=== PATIENT | male | born 1970 | race Caucasian/White ===

== ENCOUNTER 2017-02-04 12:27 | Observation (INO) | payer BC ==
[2017-02-04] MEDS ORDERED: NORMAL SALINE 1000 ML 1,000 ML IV ONE (12:40)
--- NOTE | 2017-02-04 12:43 | ER Document Report ---
ED Medical Screen (RME) - General TRAVEL OUTSIDE OF THE [place] IN LAST 30 DAYS: No <JEFFERY METZ - Last Filed: 02/04/17 12:42> <LITZY FAIRCHILD - Last Filed: 02/04/17 13:28> - General Chief Complaint: Vomiting Stated Complaint: ABDOMINAL PAIN Notes: 46-year-old male patient with history of constipation, at least will go several days without having a bowel movement. 2-3 days ago he began having mid lower abdominal pain feeling like he needed to have a BM. He took milk of magnesia and vomited it. The pain has been getting worse. Brief exam shows a soft abdomen positive bowel sounds percussion dull quite tender to palpate in the right lower quadrant and left lower quadrant. I have greeted and performed a rapid initial assessment of this patient. A comprehensive ED assessment and evaluation of the patient, analysis of test results and completion of the medical decision making process will be conducted by additional ED providers. (JEFFERY METZ) - Related Data Allergies/Adverse Reactions: No Known Allergies Allergy (Verified 02/04/17 12:30) Past Medical History Renal/ Medical History: Denies: Hx Peritoneal Dialysis <JEFFERY METZ - Last Filed: 02/04/17 12:42> Physical Exam <JEFFERY METZ - Last Filed: 02/04/17 12:42> <LITZY FAIRCHILD - Last Filed: 02/04/17 13:28> - Vital signs Vitals: Temp Pulse Resp BP Pulse Ox 97.5 F 63 18 140/77 H 100 02/04/17 12:31 02/04/17 12:31 02/04/17 12:31 02/04/17 12:31 02/04/17 12:31 - Notes Notes: I examined patient. He has mild generalized tenderness with severe tenderness in the right lower quadrant. He has guarding and rebound both. General surgery has been called (LITZY FAIRCHILD) Course <JEFFERY METZ - Last Filed: 02/04/17 12:42> - Laboratory Result Diagrams: 02/04/17 12:49 02/04/17 12:49 <LITZY FAIRCHILD - Last Filed: 02/04/17 13:28> - Re-evaluation Re-evalutation: I examined patient. He has mild generalized tenderness with severe tenderness in the right lower quadrant. He has guarding and rebound both. General surgery has been called and will see the patient 02/04/17 13:28 (LITZY FAIRCHILD) - Vital Signs Vital signs: Temp Pulse Resp BP Pulse Ox 97.5 F 63 18 140/77 H 100 02/04/17 12:31 02/04/17 12:31 02/04/17 12:31 02/04/17 12:31 02/04/17 12:31 - Laboratory Laboratory results interpreted by me: 02/04/17 12:49 WBC 12.0 H Seg Neutrophils % 84.6 H Lymphocytes % 9.5 L Absolute Neutrophils 10.2 H
[2017-02-04] MEDS ORDERED: ONDANSETRON HCL INJ/PF 4 MG/2 ML SDV IV ONE (13:08)
[2017-02-04 13:11] LABS: ABSOLUTE BASOPHILS # (AUTO) 0.1 10^3/uL (0.0-0.2); ABSOLUTE EOSINOPHILS # (AUTO) 0.1 10^3/uL (0.0-0.6); ABSOLUTE LYMPHOCYTES (AUTO) 1.1 10^3/uL (0.5-4.7); ABSOLUTE MONOCYTES (AUTO) 0.5 10^3/uL (0.1-1.4); ABSOLUTE NEUT (AUTO) 10.2 10^3/uL (1.7-8.2); BASOPHILS % (AUTO) 0.4 % (0-2); EOSINOPHILS % (AUTO) 1.1 % (0-6); HEMATOCRIT 49.2 % (37.9-51.0); HEMOGLOBIN 16.8 g/dL (13.5-17.0); HGB HCT DIFFERENCE 1.2; LYMPHOCYTES % (AUTO) 9.5 % (13-45); MEAN CORPUSCULAR HEMOGLOBIN 30.5 pg (27.0-33.4); MEAN CORPUSCULAR HGB CONC 34.2 g/dL (32.0-36.0); MEAN CORPUSCULAR VOLUME 89 fl (80-97); MONOCYTES % (AUTO) 4.4 % (3-13); RED BLOOD COUNT 5.52 10^6/uL (4.35-5.55); RED CELL DISTRIBUTION WIDTH 13.2 % (11.5-14.0); SEGMENTED NEUTROPHILS % (AUTO) 84.6 % (42-78)
--- NOTE | 2017-02-04 13:14 | ER Document Report ---
ED GI/ <LITZY FAIRCHILD - Last Filed: 02/04/17 13:29> - General Time seen by provider: 13:11 Mode of Arrival: Ambulatory Information source: Patient TRAVEL OUTSIDE OF THE [place] IN LAST 30 DAYS: No - HPI Patient complains to provider of: Abdominal pain, Vomiting Onset: Other - Couple days Timing/Duration: Gradual, Intermittent Quality of pain: Sharp Severity at maximum: Severe Severity in ED: Moderate Pain Level: 4 Location: Other - Generalized worse on the right lower quadrant Associated symptoms: Constipation, Nausea. denies: Fever Exacerbated by: Movement, Walking Relieved by: Denies Similar symptoms previously: Yes Recently seen / treated by doctor: No <IDANIA DIGGS - Last Filed: 02/04/17 18:40> - General Chief Complaint: Vomiting Stated Complaint: ABDOMINAL PAIN Notes: 46-year-old male presents to ED for generalized abdominal pain. He states he has a history of constipation but this is much worse pain than he has ever had with his constipation. States she's had no stool for at least 2 or 3 days. Pain is worse to the lower right quadrant on examination. (IDANIA DIGGS ) - Related Data Allergies/Adverse Reactions: No Known Allergies Allergy (Verified 02/04/17 12:30) Home Medications: Current Home Medications No Home Medications 02/04/17 [History] Past Medical History - General Information source: Patient - Social History Smoking Status: Former Smoker Cigarette use (# per day): No Chew tobacco use (# tins/day): No Smoking Education Provided: No Frequency of alcohol use: None Drug Abuse: None Family History: Reviewed & Not Pertinent Patient has suicidal ideation: No Patient has homicidal ideation: No - Past Medical History Cardiac Medical History: Reports: None Pulmonary Medical History: Reports: None EENT Medical History: Reports: None Neurological Medical History: Reports: None Endocrine Medical History: Reports: None Renal/ Medical History: Reports: None Malignancy Medical History: Reports None GI Medical History: Reports: None Musculoskeltal Medical History: Reports None Skin Medical History: Reports None Psychiatric Medical History: Reports: None Traumatic Medical History: Reports: None Infectious Medical History: Reports: None Past Surgical History: Reports: Hx Inguinal Hernia <IDANIA DIGGS - Last Filed: 02/04/17 18:40> Review of Systems - Review of Systems Constitutional: No symptoms reported EENT: No symptoms reported Cardiovascular: No symptoms reported Respiratory: No symptoms reported Gastrointestinal: Abdominal pain, Nausea, Vomiting Genitourinary: No symptoms reported Male Genitourinary: No symptoms reported Musculoskeletal: No symptoms reported Skin: No symptoms reported Hematologic/Lymphatic: No symptoms reported Neurological/Psychological: No symptoms reported -: Yes All other systems reviewed and negative <IDANIA DIGGS - Last Filed: 02/04/17 18:40> Physical Exam - Vital signs Interpretation: Normal - General General appearance: Appears well, Alert - HEENT Head: Normocephalic, Atraumatic Eyes: Normal Pupils: PERRL - Respiratory Respiratory status: No respiratory distress Chest status: Nontender Breath sounds: Normal Chest palpation: Normal - Cardiovascular Rhythm: Regular Heart sounds: Normal auscultation Murmur: No - Abdominal Inspection: Normal Distension: No distension Bowel sounds: Hypoactive Tenderness: Tender, McBurney's point, Guarding, Rebound Organomegaly: No organomegaly - Back Back: Normal, Nontender - Extremities General upper extremity: Normal inspection, Nontender, Normal color, Normal ROM , Normal temperature General lower extremity: Normal inspection, Nontender, Normal color, Normal ROM , Normal temperature, Normal weight bearing. No: Chinyere's sign - Neurological Neuro grossly intact: Yes Cognition: Normal Orientation: AAOx4 Zoë Coma Scale Eye Opening: Spontaneous [place] Coma Scale Verbal: Oriented [place] Coma Scale Motor: Obeys Commands [place] Coma Scale Total: 15 Speech: Normal Motor strength normal: LUE, RUE, LLE, RLE Sensory: Normal - Psychological Associated symptoms: Normal affect, Normal mood - Skin Skin Temperature: Warm Skin Moisture: Dry Skin Color: Normal <IDANIA DIGGS - Last Filed: 02/04/17 18:40> - Vital signs Vitals: Temp Pulse Resp BP Pulse Ox 97.5 F 63 18 140/77 H 100 02/04/17 12:31 02/04/17 12:31 02/04/17 12:31 02/04/17 12:31 02/04/17 12:31 Course - Laboratory Result Diagrams: 02/04/17 12:49 02/04/17 12:49 <LITZY FAIRCHILD - Last Filed: 02/04/17 13:29> - Laboratory Result Diagrams: 02/04/17 12:49 02/04/17 12:49 <IDANIA DIGGS - Last Filed: 02/04/17 18:40> - Re-evaluation Re-evalutation: 02/04/17 13:29 I examined patient. He has mild generalized tenderness with severe tenderness in the right lower quadrant. He has guarding and rebound both. General surgery has been called (LITZY FAIRCHILD) 02/04/17 13:[address] Grewal who came and examined the patient is stating he will take him to surgery for appendicitis. Patient will be admitted at this time and Unasyn 3 g ordered. Morphine and Zofran and IV fluids ordered. (IDANIA DIGGS) - Vital Signs Vital signs: Temp Pulse Resp BP Pulse Ox 97.6 F 90 18 122/73 97 02/04/17 18:00 02/04/17 18:00 02/04/17 18:00 02/04/17 18:00 02/04/17 18:00 - Laboratory Laboratory results interpreted by me: 02/04/17 02/04/17 02/04/17 12:49 12:49 12:49 WBC 12.0 H Seg Neutrophils % 84.6 H Lymphocytes % 9.5 L Absolute Neutrophils 10.2 H Glucose 133 H Albumin 5.1 H Urine Ketones TRACE H Urine Blood SMALL H Discharge <LITZY FAIRCHILD - Last Filed: 02/04/17 13:29> - Discharge Admitting Provider: Surgicalist - [facility] Unit Admitted: Surgical Floor <IDANIA DIGGS - Last Filed: 02/04/17 18:40> - Discharge Clinical Impression: Abdominal pain Qualifiers: Abdominal location: generalized Qualified Code(s): R10.84 - Generalized abdominal pain Appendicitis Qualifiers: Appendicitis type: acute appendicitis Acute appendicitis type: unspecified acute appendicitis type Qualified Code(s): K35.80 - Unspecified acute appendicitis
[2017-02-04] MEDS ORDERED: MORPHINE SULFATE 10 MG/ML INJ IV ONE (13:23)
[2017-02-04 13:27] LABS: ALANINE AMINOTRANSFERASE 21 U/L (21-72); ALBUMIN 5.1 g/dL (3.5-5.0); ALKALINE PHOSPHATASE 110 U/L (38-126); ANION GAP 19 (5-19); ASPARTATE AMINO TRANSFERASE 21 U/L (17-59); BILIRUBIN,DIRECT 0.1 mg/dL (0.0-0.4); BILIRUBIN,TOTAL 0.8 mg/dL (0.2-1.3); BLOOD UREA NITROGEN 15 mg/dL (7-20); CALCIUM 10.2 mg/dL (8.4-10.2); CARBON DIOXIDE 24 mmol/L (22-30); CHLORIDE 99 mmol/L (98-107); CREATININE RESULT 1.15 mg/dL (0.52-1.25); GLUCOSE 133 mg/dL (75-110); LIPASE 58.6 U/L (23-300); POTASSIUM 4.1 mmol/L (3.6-5.0); SODIUM 141.5 mmol/L (137-145); TOTAL PROTEIN 7.8 g/dL (6.3-8.2)
[2017-02-04 13:30] LABS: APPEARANCE,URINE CLEAR; BILIRUBIN,URINE NEGATIVE (NEGATIVE); GLUCOSE, URINE NEGATIVE (NEGATIVE); KETONES,URINE TRACE mg/dL (NEGATIVE); LEUKOCYTE ESTERASE,URINE NEGATIVE (NEGATIVE); NITRITE,URINE NEGATIVE (NEGATIVE); PROTEIN,URINE NEGATIVE (NEGATIVE); UROBILINOGEN,URINE NEGATIVE mg/dL (<2.0)
[2017-02-04] MEDS ORDERED: AMPICILLIN SOD/SULBACTAM 3 GM VIAL IV ONE (13:47)
[2017-02-04] MEDS ORDERED: FENTANYL CITRATE INJ/PF 250 MCG/5 ML AMPULE ONE (13:49)
[2017-02-04] MEDS ORDERED: MIDAZOLAM 2 MG/2 ML INJ ONE (13:49)
[2017-02-04] MEDS ORDERED: PROPOFOL INJ 200 MG/20 ML VIAL IV ONE (13:49)
[2017-02-04] MEDS ORDERED: BUPIVACAINE HCL 0.25 % INJ/PF (2.5 MG/1 ML) 30 ML VIAL ONE (13:54)
[2017-02-04] MEDS ORDERED: BUPIVACAINE INJ/PF LIPOSOME/PF 266 MG/20 ML SDV ONE (13:54)
--- NOTE | 2017-02-04 13:57 | PDOC H&P ---
History of Present Illness Patient complains of: Abdominal pain History of Present Illness: VONNIE MARTE is a 46 year old male presented to emerge form completely of acute onset abdominal pain which started yesterday. Periumbilical now radiating to the right lower quadrant. This is associated with nausea and vomiting. Patient seen in emergency department via ground rescue complaining of these symptoms. Patient was evaluated found to have significant right lower quadrant tenderness with guarding. Blood cell count was elevated to 12,000 with a left shift. Surgery was consulted, patient was evaluated, and felt to have acute appendicitis. Patient was advised admission and definitive management. Patient denies history of trauma, previous abdominal problems, or previous illness involving the GI tract. Bowel movements have been normal up until today. Patient did have one episode of vomiting in the emergency room. He last ate a muffin at 8:00 this morning. Past Medical History Cardiac Medical History: Reports: None Pulmonary Medical History: Reports: None EENT Medical History: Reports: None Neurological Medical History: Reports: None Endocrine Medical History: Reports: None Renal/ Medical History: Reports: None Malignancy Medical History: Reports: None GI Medical History: Reports: None Musculoskeltal Medical History: Reports: None Skin Medical History: Reports: None Psychiatric Medical History: Reports: None Traumatic Medical History: Reports: None Infectious Medical History: Reports: None Past Surgical History Past Surgical History: Reports: Other - Inguinal hernia repair as a child Social History Smoking Status: Former Smoker Hx Recreational Drug Use: No Hx Prescription Drug Abuse: No Family History Parental Family History Reviewed: Yes Children Family History Reviewed: Yes Sibling(s) Family History Reviewed.: Yes Medication/Allergy Allergies/Adverse Reactions: No Known Allergies Allergy (Verified 02/04/17 12:30) Review of Systems Constitutional: ABSENT: chills, fever(s), headache(s), weight gain, weight loss Eyes: ABSENT: visual disturbances Ears: ABSENT: hearing changes Cardiovascular: ABSENT: chest pain, dyspnea on exertion, edema, orthropnea, palpitations Respiratory: ABSENT: cough, hemoptysis Gastrointestinal: PRESENT: as per HPI, other. ABSENT: abdominal pain, constipation, diarrhea, hematemesis, hematochezia, nausea, vomiting Genitourinary: ABSENT: dysuria, hematuria Musculoskeletal: ABSENT: joint swelling Integumentary: ABSENT: rash, wounds Neurological: ABSENT: abnormal gait, abnormal speech, confusion, dizziness, focal weakness, syncope Psychiatric: ABSENT: anxiety, depression, homidical ideation, suicidal ideation Endocrine: ABSENT: cold intolerance, heat intolerance, polydipsia, polyuria Physical Exam Vital Signs: Temp Pulse Resp BP Pulse Ox 97.5 F 63 18 140/77 H 100 02/04/17 12:31 02/04/17 12:31 02/04/17 12:31 02/04/17 12:31 02/04/17 12:31 Intake & Output 02/03/17 02/04/17 02/05/17 06:59 06:59 06:59 Weight 92.4 kg General appearance: PRESENT: severe distress Head exam: PRESENT: normocephalic Eye exam: PRESENT: EOMI Ear exam: PRESENT: TM's normal bilaterally Mouth exam: PRESENT: dry mucosa Neck exam: PRESENT: full ROM Respiratory exam: PRESENT: clear to auscultation liya Cardiovascular exam: PRESENT: RRR Pulses: PRESENT: normal carotid pulses GI/Abdominal exam: PRESENT: other Rectal exam: PRESENT: deferred Extremities exam: PRESENT: full ROM Neurological exam: PRESENT: alert, altered, awake, oriented to person, oriented to place Psychiatric exam: PRESENT: anxious Results Laboratory Results: 02/04/17 12:49 02/04/17 12:49 02/04/17 02/04/17 02/04/17 12:49 12:49 12:49 WBC 12.0 H RBC 5.52 Hgb 16.8 Hct 49.2 MCV 89 MCH 30.5 MCHC 34.2 RDW 13.2 Plt Count 229 Seg Neutrophils % 84.6 H Lymphocytes % 9.5 L Monocytes % 4.4 Eosinophils % 1.1 Basophils % 0.4 Absolute Neutrophils 10.2 H Absolute Lymphocytes 1.1 Absolute Monocytes 0.5 Absolute Eosinophils 0.1 Absolute Basophils 0.1 Sodium 141.5 Potassium 4.1 Chloride 99 Carbon Dioxide 24 Anion Gap 19 BUN 15 Creatinine 1.15 Est GFR ( Amer) > 60 Est GFR (Non-Af Amer) > 60 Glucose 133 H Calcium 10.2 Total Bilirubin 0.8 AST 21 ALT 21 Alkaline Phosphatase 110 Total Protein 7.8 Albumin 5.1 H Lipase 58.6 Urine Color YELLOW Urine Appearance CLEAR Urine pH 7.0 Ur Specific [place] 1.020 Urine Protein NEGATIVE Urine Glucose (UA) NEGATIVE Urine Ketones TRACE H Urine Blood SMALL H Urine Nitrite NEGATIVE Ur Leukocyte Esterase NEGATIVE Urine WBC (Auto) 1 Urine RBC (Auto) 3 Assessment & Plan - Time Time Spent: 30 to 50 Minutes Critical Time spent with patient: 15-24 minutes Medications reviewed and adjusted accordingly: Yes Anticipated discharge: Home - Inpatient Certification Based on my medical assessment, after consideration of the patient's comorbidities, presenting symptoms, or acuity I expect that the services needed warrant INPATIENT care.: Yes I certify that my determination is in accordance with my understanding of Medicare's requirements for reasonable and necessary INPATIENT services [42 CFR 412.3e].: Yes Medical Necessity: Need for Pain Control, Need for IV Antibiotics, Need for Surgery - Plan Summary Plan Summary: Assessment and plan: Acute abdominal pain most consistent with acute appendicitis in this otherwise healthy 46-year-old white male 1. Proceed with laparoscopic, possible open appendectomy, Dr. Grewal, main operating room, later today I've explained the mechanics of the operation, as well as explaining the risks benefits and alternatives. He expresses understanding and agrees to proceed.
[2017-02-04] MEDS ORDERED: AMPICILLIN SODIUM/SULBACTAM NA 3 GM in NORMAL SALINE 100 ML IV ONE (14:15)
[2017-02-04] MEDS ORDERED: ACETAMINOPHEN 100 ML IV ONE (14:37)
[2017-02-04] MEDS ORDERED: FENTANYL CITRATE INJ/PF 100 MCG/2 ML AMPUL IV PRN ×3 (14:51)
[2017-02-04] MEDS ORDERED: MORPHINE SULFATE 10 MG/ML INJ IV PRN (14:51)
[2017-02-04] MEDS ORDERED: OXYCODONE-ACETAMINOPHEN 5-325 MG TABLET PO PRN ×2 (14:51)
[2017-02-04] MEDS ORDERED: PROMETHAZINE HCL INJ 25 MG/1 ML VIAL IV PRN ×2 (14:51)
[2017-02-04] MEDS ORDERED: MEPERIDINE HCL/PF INJ 25 MG/1 ML DISP.SYRIN IV PRN (14:51)
[2017-02-04] MEDS ORDERED: DIPHENHYDRAMINE HCL 50 MG/ML VIAL IV PRN (14:51)
--- NOTE | 2017-02-04 15:19 | Operative Report ---
Operative Report DATE OF SURGERY: 02/04/17 PREOPERATIVE DIAGNOSIS: Acute appendicitis POSTOPERATIVE DIAGNOSIS: Same OPERATION: Laparoscopic appendectomy SURGEON: DILSHAD ALLEN ANESTHESIA: GA TISSUE REMOVED OR ALTERED: Appendix COMPLICATIONS: None ESTIMATED BLOOD LOSS: scant INTRAOPERATIVE FINDINGS: See below PROCEDURE: The patient was taken to the preoperative holding area to the main operating room where general anesthesia was induced. The abdomen was clipped of hair, prepped and draped in a sterile fashion. Surgical plan and surgical timeout were conducted. Skin was anesthetized with quarter percent Marcaine. A supraumbilical vertical incision with a knife needle inserted into the peritoneal cavity, and pneumoperitoneum was established. Veress needle was removed, and a 5 mm port was inserted into the peritoneal cavity and a 5 mm viewing scope was inserted. One 5 mm supra pubic position and a 12 mm port placed in the left lower quadrant. Of note the bladder was becoming distended with urine. Follicular significant for acute appendicitis with a very generous, dilated appendix without evidence of rupture. I opened up sharply the retroperitoneal reflection affixing the cecum to the posterior pelvic wall. This enabled complete visualization of the appendix and the mesoappendix. Mesoappendix was taken with a single firing of the 35 mm, blue load, Ethicon stapler. The appendix was now suspended from the cecum at its base. A second firing of the stapler was deployed thereby amputating the appendix. The appendix was placed in an Endobag and brought out of the patient to the left lower quadrant port site incision. It was sent to pathology. We returned the peritoneal cavity for bleeding and there was only minimal bleeding from the staple line. I carefully inspected the meso-appendix staple line and it was intact. Similarly stapler across the base of the appendix was intact; there was some discharge that had emanated from the appendix during stapling which was all suctioned out.. I again checked the cecum the staple line was no evidence of violation of the cecal lumen that I could appreciate. A large Geraldo drain was placed through the supraumbilical port site, trimmed to the appropriate length and tucked into the perianal retrocecal area. We only performed localized irrigation of the pericecal tissue. The operation was complete. Sponge and a consequent to all ports removed under localization, pneumoperitoneum was evacuated, ports removed and wounds closed with 0 Vicryl through a Vicryl benzoin and Steri-Strips Patient did well, extubated and placed into the Recovery room in stable condition
[2017-02-04] MEDS ORDERED: ONDANSETRON HCL INJ/PF 4 MG/2 ML SDV IV PRN (15:20)
[2017-02-04] MEDS ORDERED: METOCLOPRAMIDE HCL INJ/PF 10 MG/2 ML SDV ONE (15:38)
[2017-02-04] MEDS ORDERED: GLYCOPYRROLATE INJ 0.4 MG/2 ML VIAL ONE (15:38)
[2017-02-04] MEDS ORDERED: ONDANSETRON HCL INJ/PF 4 MG/2 ML SDV ONE (15:38)
[2017-02-04] MEDS ORDERED: KETOROLAC TROMETHAMINE 60 MG/2 ML SDV ONE (15:38)
[2017-02-04] MEDS ORDERED: SUCCINYLCHOLINE CHLORIDE INJ 200 MG/10 ML VIAL ONE (15:38)
[2017-02-04] MEDS ORDERED: NEOSTIGMINE METHYLSULFATE 10 MG/10 ML VIAL ONE (15:38)
[2017-02-04] MEDS ORDERED: LIDOCAINE 2% INJ-PF (20 MG/ML) 10 ML AMPUL ONE (15:38)
[2017-02-04] MEDS ORDERED: DEXAMETHASONE SOD PHOSPHATE INJ 4 MG/1 ML VIAL ONE (15:38)
[2017-02-04] MEDS: AMPICILLIN SODIUM/SULBACTAM NA 3 GM in NORMAL SALINE 100 ML IV SCH (21:27)
[2017-02-05] MEDS: AMPICILLIN SODIUM/SULBACTAM NA 3 GM in NORMAL SALINE 100 ML IV SCH ×3 (05:39→21:02)
[2017-02-05] MEDS: MORPHINE SULFATE 10 MG/ML INJ IV PRN ×2 (09:18→14:52)
--- NOTE | 2017-02-05 09:18 | DISCHARGE SUMMARY E ---
Discharge Summary NAME: VONNIE MARTE : 1970 AGE: 46Y ADMITTED: 02/04/2017 DISCHARGED: 02/05/2017 ADMITTING DIAGNOSIS: Acute appendicitis. DISCHARGE DIAGNOSIS: Acute appendicitis. OPERATIVE PROCEDURE: Laparoscopic appendectomy done by Dr. Grewal yesterday. The patient was admitted for postop pain management. REASON FOR ADMISSION/HOSPITAL COURSE: The patient presented to the emergency room with abdominal pain and right lower quadrant tenderness. CT scan revealed appendicitis. He was taken to the operating room and underwent laparoscopic appendectomy. This morning, he feels comfortable, passed flatus, no nausea, tolerating diet. Pain is minimal. Afebrile. PHYSICAL EXAMINATION: GENERAL: Appears to be comfortable. VITAL SIGNS: Again, afebrile. CHEST: Clear to auscultation. ABDOMEN: Soft and nontender. Trocar site are clean, healing well. Overall, he is doing well. DISCHARGE MEDICATIONS: Include: 1. Alex for the pain. 2. Stool softeners. 3. Colace. 4. I did give him a prescription also for Augmentin for a week. FOLLOWUP PLAN: In the surgical office in 1 or 2 weeks. Patient was asked to come back to the emergency room in case he started having a high fever, increasing abdominal pain, nausea, vomiting, any of these issues all explained to the patient. Spent about 30 minutes of discharge to consulting and coordinating for the care and also for evaluating the patient. DICTATING PHYSICIAN: MAMADOU JUDGE M.D. [id number] PHY#: [id number] ID: [id number] JOB#: [id number] ACCT: [id number] cc:Aleah PATTERSON PA > MTDD
[2017-02-05] MEDS: NORMAL SALINE 1000 ML 1,000 ML IV PRN ×2 (12:00→21:02)
[2017-02-05] MEDS ORDERED: HYDROCODONE/ACETAMINOPHEN 5-325 MG TABLET ONE (16:49)
[2017-02-05] MEDS: HYDROCODONE/ACETAMINOPHEN 5-325 MG TABLET PO PRN (21:02)
[2017-02-06] MEDS: HYDROCODONE/ACETAMINOPHEN 5-325 MG TABLET PO PRN ×3 (00:58→09:34)
[2017-02-06] MEDS: AMPICILLIN SODIUM/SULBACTAM NA 3 GM in NORMAL SALINE 100 ML IV SCH (05:53)
[2017-02-06 07:20] VITALS: BP 122/72
== END 2017-02-06 09:58 | disposition home or self-care (01) ==
LOC: ER 12:27 → EH 13:45 → INTOOBSV 13:45 → EH 14:10 → UNDOADMIN 14:10 → 4N 16:37
PROC: 0DTJ4ZZ Resection of Appendix, Percutaneous Endoscopic Approach (ICD-10-PCS; principal; 2017-02-04 14:30)
DX: K35.80 Unspecified acute appendicitis (principal); Z98.890 Other specified postprocedural states; Z87.891 Personal history of nicotine dependence
CPT/HCPCS: 44970; 99284; 96361; 96374; 96375; 36415; 83690; 85025; 80053; 81001; 88304 ×2; G0378 ×4; J2250; J1100; J1885; J3010; J0295 ×3; J2765; J2270 ×2; J0330; J2405; J7030 ×2; J2704; J3490; J0131; 840; C9290